=== PATIENT | female | born 1940 | race Hispanic/Latino ===

== ENCOUNTER → 2023-09-06 | Outpatient (CLI) | payer OTHER | END | disposition home or self-care (01) | LOC: RAH 13:11 | PROVIDERS: ATTEND Orthopaedic Surgery | DX: M17.12 Unilateral primary osteoarthritis, left knee (principal); M17.11 Unilateral primary osteoarthritis, right knee | CPT/HCPCS: 93925 ==

== ENCOUNTER → 2023-09-23 | Outpatient (CLI) | payer OTHER | END | disposition home or self-care (01) | LOC: RAH 13:00 | PROVIDERS: ATTEND Orthopaedic Surgery | DX: M17.11 Unilateral primary osteoarthritis, right knee (principal); M17.12 Unilateral primary osteoarthritis, left knee | CPT/HCPCS: 73700 ==

== ENCOUNTER 2025-06-15 21:33 | Emergency (ER) | payer OTHER ==
[~2025-06-15] VITALS: Ht 157.5 cm; Wt 102.5 kg
[2025-06-15 22:34] LABS: IMMATURE GRANULOCYTE ABSOLUTE 0.06 K/uL (0-1); NUCLEATED RED BLOOD CELLS 0.0 % (0.0-0.19); PLATELET COUNT (AUTO) 392 K/uL (130-400); RED BLOOD CELL COUNT(AUTO) 4.29 MIL/uL (4.00-5.50); RED CELL DISTRIBUTION WIDTH 14.7 % (11.0-15.5); WHITE BLOOD COUNT (AUTO) 10.1 K/uL (4.8-10.8)
[2025-06-15 22:43] LABS: CREATININE 0.9 mg/dL (0.5-1.0); GLOMERULAR FILTR. RATE CALC 62.0 mL/min (>90); GLUCOSE,RANDOM 114.0 mg/dL (70-105); SODIUM SERUM 144.0 mmol/L (136-145); UREA NITROGEN, BLOOD 16.0 mg/dL (7-18)
--- NOTE | 2025-06-16 00:24 | HMCIMG ---
EXAMINATION: SPECTRAL DOPPLER ULTRASOUND EXAMINATION OF THE BILATERAL LOWER EXTREMITY VEINS. CLINICAL HISTORY: Swelling. COMPARISON: None provided. TECHNIQUE: Real-time ultrasound scan of the veins of the bilateral lower extremity with color Doppler flow, spectral waveform analysis, and compression. FINDINGS: DEEP VEINS: The common femoral, superficial femoral, and popliteal veins are echolucent and compressible. There is normal color Doppler flow throughout. The visualized calf veins appear patent. SUPERFICIAL VEINS: The proximal greater saphenous veins are patent and compressible. SOFT TISSUES: No popliteal fossa cyst or other abnormalities. IMPRESSION: No deep venous thrombosis is evident in the bilateral lower extremities. No superficial thrombophlebitis in the bilateral lower extremity. /[place]
--- NOTE | 2025-06-16 00:38 | EKG ---
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
--- NOTE | 2025-06-16 00:48 | HMCIMG ---
EXAM: CR Chest, 1 view CLINICAL HISTORY: Shortness of breath. COMPARISON: None provided. FINDINGS: Mild cardiomegaly and pulmonary vascular congestion. Mild bibasilar airspace disease, which could be secondary to subsegmental atelectasis or an infectious process. No large pleural effusion or pneumothorax. Mild COPD. No acute osseous abnormality. IMPRESSION: Mild cardiomegaly and pulmonary vascular congestion. Mild bibasilar airspace disease, which could be secondary to subsegmental atelectasis or an infectious process. Mild COPD. /[place]
--- NOTE | 2025-06-16 01:05 | ERN ---
ED Note History of Present Illness Stated Complaint: C/O HIGH B/P Chief Complaint: Hypertension Time Seen by MD: 21:39 Time Seen by Midlevel: 21:39 Dictation: The patient is an 84-year-old female with a history of hypertension, hyperlipidemia, obesity who presents to the emergency department with complaints of elevated blood pressure. Per patient's daughter she checks her blood pressure every night. Reports blood pressure today was 218 systolic. Reports that she is on losartan 100 mg and they just increased her metoprolol ER to 1- 1/2 b.i.d. tablets although she is unaware of the dose. Patient otherwise with no symptoms. Patient denies any headache, dizziness, nausea or vomiting, chest pain or shortness of breath. Daughter reports that patient also has lower extremity edema but that has been going on for years. Reports she has problems with her left knee and needs knee replacement. Patient currently does not complain of any lower extremity pain. Allergies: Coded Allergies: No Known Drug Allergies (Unverified Allergy, Unknown, 11/12/24) Home Meds Reported Medications Vibegron (Gemtesa) 75 Mg Tablet, 1 TAB PO DAILYDINNER for 30 Days, #30 TAB 0 Refills 11/14/24 Aspirin (Kianna Chewable) 81 Mg Tab.chew, 81 MG PO DAILYDINNER, TAB.CHEW 11/14/24 Atorvastatin Calcium (LIPITOR) 10 Mg Tab, 1 TAB PO HS for 30 Days, #30 TAB 0 Refills 11/14/24 Cholecalciferol (Vitamin D3) (Vitamin D3) 125 Mcg (5000 Unit) Capsule, 1 CAP PO DAILYDINNER for 30 Days, #30 CAP 0 Refills 11/14/24 Ascorbic Acid (Vitamin C) 1,000 Mg Tablet, 1 TAB PO DAILYDINNER for 15 Days, #15 TAB 0 Refills DIRECTED 11/14/24 Losartan Potassium (Losartan Potassium) 100 Mg Tablet, 1 TAB PO DAILY for 30 Days, #30 TAB 0 Refills 11/12/24 Hydrochlorothiazide (Hydrochlorothiazide) 12.5 Mg Tablet, 1 TAB PO DAILY for 30 Days, #30 TAB 0 Refills 11/12/24 Duloxetine HCl (Duloxetine HCl) 20 Mg Capsule.dr, 1 CAP PO DAILY for 30 Days, #30 CAP 0 Refills 11/12/24 Metoprolol Succinate (Metoprolol Succinate) 50 Mg Tab.er.24h, 1 TAB PO DAILY for 30 Days, #30 TAB 0 Refills 11/12/24 Levothyroxine Sodium (Levothyroxine) 50 Mcg Capsule, 1 CAP PO DAILY for 30 Days, #30 CAP 0 Refills 11/12/24 Amlodipine Besylate (Amlodipine Besylate) 5 Mg Tablet, 1 TAB PO DAILY for 30 Days, #30 TAB 0 Refills 11/12/24 Furosemide (Furosemide) 40 Mg Tablet, 1 TAB PO DAILY for 30 Days, #30 TAB 0 Refills 11/12/24 Past Medical History Past Medical History: High Cholesterol, Hypertension, Hypothyroid, Other Additional Past Medical Hx: SLEEP APNEA Surgical History: Hysterectomy, Cholecystectomy, Other Surgical History Other: RT KNEE SX RN Note Reviewed/Agreed w/PFSH: Yes Review of System Dictation Constitutional: Negative for fever,chills, and weight loss Eyes: Negative for injury, pain,redness, and discharge ENT: Negative for injury,pain or swelling Cardiovascular: Negative for chest pain, palpitations positive for lower extremity edema Respiratory: Negative for shortness of breath, cough, and wheezing, Abdomen/GI: Negative for abdominal pain, nausea, vomiting, diarrhea, and constipation Back: Negative for injury and pain : Negative for injury, bleeding and discharge MS/Extremity: Negative for injury and deformity Skin: Negative for rash, and discoloration Neuro: Negative for headache, weakness, numbness, tingling, and seizure Psych: Negative for suicide ideation, homicidal ideation, and hallucinations Initial Vital Sign VS Vital Signs Date Time Temp Pulse Resp B/P (MAP) Pulse Ox O2 Delivery O2 Flow Rate FiO2 06/15/25 21:39 97.9 60 20 202/72 96 Room Air 06/15/25 22:56 0 21 Physical Exam Dictation Vital Signs reviewed General Appearance: Alert, oriented x 3, no acute distress, well developed, nourished. Head and Face: non-traumatic. Eyes: PERRL, pink conjunctivas, eyelid no trauma, anterior chamber with arcus senilis. Ears: Pinnas intact and no signs of trauma or erythema ear canals clear and no discharge TM no erythema Nose: No discharge, no bleeding. Oropharynx: Mouth normal, tongue pink. pharynx clear,no erythema, tonsils no exudates, no abscesses noted, mucous membrane moist Neck: Supple, non-tender, no thyromegaly, no masses, no JVD, no bruits Breast:Deferred Chest:No tenderness, no crepitus, no paradoxical movement, no retractions Lungs:Clear, well-ventilated, symmetric, no rales, no wheezing, no rhonchi, no stridor, good breath sounds bilaterally Heart: Regular rate, regular rhythm, no murmur, no gallops Vascular: 3+ left peripheral edema, 2+ right peripheral edema Abdomen: Soft, positive bowel sounds, nondistended, no guarding, nontender, no rebound, no masses no hepatomegaly, no splenomegaly, no Pike's sign, no hernias. Rectal: Deferred Genital: Deferred Neurological: Normal speech, motor function intact, sensory function intact Musculoskeletal: Neck nontender, full range of motion, back nontender, full range of motion, Extremities: nontender, full range of motion Skin: Color pink, dry, no turgor, no rash, no lacerations, no abrasions, no contusions. Lymphatic: Deferred Results (Laboratory/Radiology) Laboratory/Radiology Laboratory Tests Test 06/15/25 22:17 White Blood Count 10.1 K/uL (4.8-10.8) Red Blood Count 4.29 MIL/uL (4.00-5.50) Hemoglobin 12.9 g/dL (12.0-16.0) Hematocrit 40.3 % (36-48) Mean Corpuscular Volume 93.9 fL (79-99) Mean Corpuscular Hemoglobin 30.1 pg (27.0-33.0) Mean Corpuscular Hemoglobin Concent 32.0 g/dL (32.0-36.0) Red Cell Distribution Width 14.7 % (11.0-15.5) Platelet Count 392 K/uL (130-400) Mean Platelet Volume 8.9 fL (7.5-10.5) Immature Granulocyte % (Auto) 0.6 % (0-1) Neutrophils (%) (Auto) 67.8 % (40.0-77.0) Lymphocytes (%) (Auto) 21.1 % (21.0-51.0) Monocytes (%) (Auto) 7.2 % (3.0-13.0) Eosinophils (%) (Auto) 2.8 % (0.0-8.0) Basophils (%) (Auto) 0.5 % (0.0-5.0) Neutrophils # (Auto) 6.9 K/uL (1.8-7.7) Lymphocytes # (Auto) 2.1 K/uL (1.0-4.8) Monocytes # (Auto) 0.7 K/uL (0.1-1.0) Eosinophils # (Auto) 0.28 K/uL (0.00-0.70) Basophils # (Auto) 0.05 K/uL (0.00-0.20) Absolute Immature Granulocyte (auto 0.06 K/uL (0-1) Nucleated Red Blood Cells 0.0 % (0.0-0.19) Sodium Level 144 mmol/L (136-145) Potassium Level 3.6 mmol/L (3.5-5.1) Chloride Level 103 mmol/L (101-111) Carbon Dioxide Level 33 mmol/L (21-32) H Blood Urea Nitrogen 16 mg/dL (7-18) Creatinine 0.9 mg/dL (0.5-1.0) Glomerular Filtration Rate Calc 62 mL/min (>90) Random Glucose 114 mg/dL (70-105) H Total Calcium 9.5 mg/dL (8.5-10.1) Troponin I High Sensitivity 14 ng/L (4-50) B-Type Natriuretic Peptide 121 pg/mL (0-100) H REASON: swelling ORDERING PHYSICIAN: JOHNNY BO PROCEDURE: VENOUS LALO - US VENOUS DOPPLER BILATERAL EXAMINATION: SPECTRAL DOPPLER ULTRASOUND EXAMINATION OF THE BILATERAL LOWER EXTREMITY VEINS. CLINICAL HISTORY: Swelling. COMPARISON: None provided. TECHNIQUE: Real-time ultrasound scan of the veins of the bilateral lower extremity with color Doppler flow, spectral waveform analysis, and compression. FINDINGS: DEEP VEINS: The common femoral, superficial femoral, and popliteal veins are echolucent and compressible. There is normal color Doppler flow throughout. The visualized calf veins appear patent. SUPERFICIAL VEINS: The proximal greater saphenous veins are patent and compressible. SOFT TISSUES: No popliteal fossa cyst or other abnormalities. IMPRESSION: No deep venous thrombosis is evident in the bilateral lower extremities. No superficial thrombophlebitis in the bilateral lower extremity. /[place] REASON: sob ORDERING PHYSICIAN: JOHNNY BO PROCEDURE: CXR1VW - CHEST 1VW EXAM: CR Chest, 1 view CLINICAL HISTORY: Shortness of breath. COMPARISON: None provided. FINDINGS: Mild cardiomegaly and pulmonary vascular congestion. Mild bibasilar airspace disease, which could be secondary to subsegmental atelectasis or an infectious process. No large pleural effusion or pneumothorax. Mild COPD. No acute osseous abnormality. IMPRESSION: Mild cardiomegaly and pulmonary vascular congestion. Mild bibasilar airspace disease, which could be secondary to subsegmental atelectasis or an infectious process. Mild COPD. /[place] Labs Reviewed?: Yes EKG: (+) rhythm (Sinus rhythm) EKG Comment: Date:06/15/2025 Time:2138 Ventricular rate:57 MD interval:183 QRS duration:76 QT/QTc:399 EKG interpretation: Sinus rhythm Reviewed by ED Attending no STEMI ED Course ED Course Orders Procedure Category Date Status Time 12 Lead Ekg Tracing- EKG 06/15/25 Complete Technical 21:44 Cbc With Differential LAB 06/15/25 Complete 21:57 Chest 1vw RAD 06/15/25 Resulted 21:57 Troponin I High LAB 06/15/25 Complete Sensitivity 21:57 Basic Metabolic Panel LAB 06/15/25 Complete 21:57 B-Type Natriuretic LAB 06/15/25 Complete Peptide 21:57 Us Venous Doppler US 06/15/25 Resulted Bilateral 21:57 Hydralazine 20mg Inj PHA 06/15/25 Complete (Apresoline 20mg In 22:00 Current Medications Medications (Trade) Dose Ordered Sig/Prabhjot Route PRN Reason Start Time Stop Time Status Last Admin Dose Admin Hydralazine HCl (APRESOLine 20MG INJ) 10 mg ONCE ONCE IV 06/15/25 22:00 06/15/25 22:04 DC 06/15/25 22:17 Vital Signs Date Time Temp Pulse Resp B/P (MAP) Pulse Ox O2 Delivery O2 Flow Rate FiO2 06/15/25 22:56 98.8 85 18 126/56 99 Room Air* 0 21 06/15/25 21:39 97.9 60 20 202/72 96 Room Air Medical Decision Making MDM The patient is an 84-year-old female with a history of hypertension, hyperlipidemia, obesity who presents to the emergency department with complaints of elevated blood pressure. Per patient's daughter she checks her blood pressure every night. Reports blood pressure today was 218 systolic. Reports that she is on losartan 100 mg and they just increased her metoprolol ER to 1- 1/2 b.i.d. tablets although she is unaware of the dose. Patient otherwise with no symptoms. Patient denies any headache, dizziness, nausea or vomiting, chest pain or shortness of breath. Daughter reports that patient also has lower extremity edema but that has been going on for years. Reports she has problems with her left knee and needs knee replacement. Patient currently does not complain of any lower extremity pain. CBC showed no leukocytosis, no anemia, chemistry showed negative troponin, slightly elevated BNP, chest x-ray showed mild atelectasis. Ultrasound revealed no evidence of DVT. Patient otherwise with no chest pain, no shortness of breath, no cough or any upper respiratory symptoms. Patient is asymptomatic. Received IV hydralazine which improved her blood pressure. Patient continues in no acute distress, neurologically intact. Patient will be discharged to follow up with PCP. Differential diagnosis: Hypertensive urgency, hypertensive emergency, fluid overload Need for hospitalization: Patient does not meet criteria for hospitalization. There are no social concerns with this patient. DX & DISP Disposition: Discharge Departure Impression: Primary Impression: Elevated blood pressure reading Condition: Stable Additional Instructions: The labs were unremarkable. The ultrasound did not show any evidence of clot on your legs. Please follow up with your primary doctor in 1-2 days. If anything worsens please return to ER. FOLLOW-UP WITH PRIMARY CARE PROVIDER IN 1 TO 2 DAYS. TAKE MEDICATIONS DIRECTED HERE IN THE EMERGENCY ROOM. OKAY TO CONTINUE HOME MEDICATIONS UNLESS OTHERWISE DISCUSSED DURING YOUR VISIT IN THE EMERGENCY ROOM TODAY. RETURN TO YOUR NEAREST EMERGENCY ROOM IF SYMPTOMS WORSEN OR IF THERE IS NO IMPROVEMENT. CALL 911 IF YOU NEED IMMEDIATE ASSISTANCE. TAKE TYLENOL [id number] NEEDED AND IF NO CONTRAINDICATIONS ARE PRESENT. INCREASE ORAL HYDRATION. A WOUND CULTURE OR URINE CULTURE WAS ORDERED HERE IN THE EMERGENCY ROOM DEPARTMENT PLEASE FOLLOW-UP WITH PRIMARY CARE PROVIDER AND ADVISE THEM TO GET REPEAT PORTS FROM OUR FACILITY. IF YOU HAD ANY CHARLES WRAP/SPLINTS THAT WERE APPLIED HERE, PLEASE DO NOT REMOVE THEM UNTIL YOU SEE YOUR PRIMARY CARE OR SPECIALTY. Referrals: RAISSA PHELPS MD (PCP) Time of Disposition: 01:04 I have reviewed the case, and I agree with, Diagnosis and Plan JOHNNY BO BOAT MECHANIC Jun 16, 2025 01:05
[2025-06-16 01:07] VITALS: BP 132/63; PULSE 82; RESP 20; TEMP 98.8; O2SAT 98
== END 2025-06-16 01:18 | disposition home or self-care (01) ==
LOC: EDH 21:33
DX: I10 Essential (primary) hypertension (principal); M79.662 Pain in left lower leg; M79.661 Pain in right lower leg; E03.8 Other specified hypothyroidism; E78.00 Pure hypercholesterolemia, unspecified; G47.30 Sleep apnea, unspecified; J44.9 Chronic obstructive pulmonary disease, unspecified; Z79.890 Hormone replacement therapy; Z79.899 Other long term (current) drug therapy; Z90.49 Acquired absence of other specified parts of digestive tract; Z90.710 Acquired absence of both cervix and uterus
CPT/HCPCS: 99285; 93970; 96374; 71045; 84484; 80048; 83880; 85025; 36415; 93005; J0360